=== PATIENT | female | born 1940 | race Caucasian/White ===

== ENCOUNTER 2020-12-29 11:44 | Day surgery (SDC) | payer MEDICARE, SELFPAY ==
[2020-12-29 12:21] VITALS: BP 150/73; PULSE 60; RESP 16; TEMP 37.1; O2SAT 95; BMI 22.8
[2020-12-29] MEDS: PROPARACAINE 0.5% OPHTH SOL 2 DROPS EYE-OP (12:36)
[2020-12-29] MEDS: CATARACT EYE COMPOUND (10 DROPS/SYRINGE) 3 DROPS EYE-OP (12:37)
--- NOTE | 2020-12-29 12:59 | P.OP_ITS ---
Operative Date/Time/Diagnoses Pre-op diagnosis: Nuclear cataract right eye Procedure & Clinicians Procedure: Cataract Surgery Same procedure as scheduled: Yes Surgeon: Cyrus Gonzalez Anesthesia Type: MAC +/- and Sedation Operative Notes Procedure in detail: Patient brought to the operating suite. Tetracaine drops placed in the right eye. Marking instrument was used to camelia the vertical and horizontal meridians. Patient was prepped and draped in sterile manner. Wire lid speculum was placed in the eye. Marking instrument was used to camelia the 30 degree meridian. Betadine drops were placed on the eye. This was irrigated. Lidocaine jelly was placed on the eye. A paracentesis port was created with a side-port blade. 0.1 mL 1% preservative free lidocaine was injected into the anterior chamber. The anterior chamber was deepened with viscoelastic. 2.6 mm keratome was used to create a temporal clear corneal incision. Cystotome and Utr holly forceps were used to create continuous tear capsulorrhexis. Balanced salt solution was used to hydro dissect the nucleus. The phacoemulsification handpiece was inserted and the nucleus was removed using the stop and chop technique. The irrigation aspiration handpiece was inserted and the remaining cortex was removed. Anterior chamber was deepened with viscoelastic. An Owens [id number] intraocular lens with a power of 24.5 was injected into the capsular bag. Irrigation aspiration handpiece was inserted and the remaining viscoelastic was removed. The lens was rotated to the 30 degree meridian. Incision was hydrated with balanced salt solution and found to be leak free with pressure with Weck- Aurea sponges. 0.1 mL Vigamox injected anterior chamber. 0.3 mL Kenalog 10 mg was injected subconjunctivally. Lid speculum was removed. The patient left the operating room in excellent condition. Complications: none Post-operative Condition: stable Disposition: same day surgery
--- NOTE | 2020-12-29 12:59 | PM.PREOP ---
Pre-operative Note Interval Note History & Physical reviewed/Exam performed by Physician: Yes Changes to H&P: No
[2020-12-29 13:50] LABS: COVID19 -Nasal RAPID Negative (Negative)
[2020-12-29] MEDS: MOXIFLOXACIN INJ 4 MG/0.8 ML VIAL 0.5 MG EYE-OP (13:55)
[2020-12-29] MEDS: LIDOCAINE 2% (GLYDO) 6 ML GEL TOP (13:55)
[2020-12-29] MEDS: PHENYLEPHRINE/LIDOCAINE VIAL (OR) 0.2 ML EYE-OP (13:55)
[2020-12-29] MEDS: TETRACAINE 0.5% OPHTH DROPS 4 ML 2 DROPS EYE-OP (13:55)
[2020-12-29] MEDS: HYALURONATE SODIUM 30 MG-10 MG/ML SYRINGES 1 BOX INTRAOCULA (13:55)
[2020-12-29] MEDS: TRIAMCINOLONE 50 MG/5 ML VIAL INJ (13:56)
[2020-12-29] MEDS: BALANCED SALT IRRIG SOLN NO.2 500 ML, EPINEPHrine 1 MG IRR (13:56)
[2020-12-29 14:14] VITALS: BP 140/59; PULSE 51; RESP 18; TEMP 36.7; O2SAT 96
[2020-12-29 14:46] VITALS: BP 148/59; PULSE 50; RESP 16; TEMP 36.8; O2SAT 98
== END 2020-12-29 15:24 | disposition home or self-care (01) ==
PROVIDERS: Family Provider Family Medicine Geriatric Medicine; PCP Family Medicine; Referring Provider Ophthalmology; Visit Provider Ophthalmology
PROC: (CPT 66984; principal; 2020-12-29 13:45)
DX: H25.11 Age-related nuclear cataract, right eye (principal); Z20.822 Contact with and (suspected) exposure to COVID-19; F41.9 Anxiety disorder, unspecified; F32.9 Major depressive disorder, single episode, unspecified; E78.00 Pure hypercholesterolemia, unspecified; I10 Essential (primary) hypertension; J84.9 Interstitial pulmonary disease, unspecified
CPT/HCPCS: 66984; 87635; J0171; J2250; J3301; V2787

== ENCOUNTER 2021-01-12 10:52 | Day surgery (SDC) | payer MEDICARE, SELFPAY ==
[2021-01-12 12:01] VITALS: BP 186/74; PULSE 58; RESP 16; TEMP 36.4; O2SAT 98; BMI 22.1
[2021-01-12] MEDS: PROPARACAINE 0.5% OPHTH SOL 2 DROPS EYE-OP (12:04)
[2021-01-12] MEDS: CATARACT EYE COMPOUND (10 DROPS/SYRINGE) 3 DROPS EYE-OP ×3 (12:08→12:22)
--- NOTE | 2021-01-12 12:38 | P.OP_ITS ---
Operative Date/Time/Diagnoses Pre-op diagnosis: Nuclear Cataract Left eye Post-op diagnosis: same Procedure & Clinicians Same procedure as scheduled: Yes Surgeon: Cyrus Gonzalez Anesthesia Type: MAC +/- and Sedation Operative Notes Procedure in detail: Patient brought to the operating suite. Tetracaine drops placed in the left eye. Marking instrument was used to camelia the vertical and horizontal meridians. Patient was prepped and draped in sterile manner. Wire lid speculum was placed in the eye. Marking instrument was used to camelia the 160 degree meridian. Betadine drops were placed on the eye. This was irrigated. Lidocaine jelly was placed on the eye. A paracentesis port was created with a side-port blade. 0.1 mL 1% preservative free lidocaine was injected into the anterior chamber. The anterior chamber was deepened with viscoelastic. 2.6 mm keratome was used to create a temporal clear corneal incision. Cystotome and Utrata forceps were used to create continuous tear capsulorrhexis. Balanced salt solution was used to hydro dissect the nucleus. The phacoemulsification handpiece was inserted and the nucleus was removed using the stop and chop technique. The irrigation aspiration handpiece was inserted and the remaining cortex was removed. Anterior chamber was deepened with viscoelastic. An Owens [id number] intraocular lens with a power of 24.5 was injected into the capsular bag. Irrigation aspiration handpiece was inserted and the remaining viscoelastic was removed. The lens was rotated to the 160 degree meridian. Incision was hydrated with balanced salt solution and found to be leak free with pressure with Weck- Aurea sponges. 0.1 mL Vigamox injected anterior chamber. 0.3 mL Kenalog 10 mg was injected subconjunctivally. Lid speculum was removed. The patient left the operating room in excellent condition. Complications: none Post-operative Condition: stable Disposition: same day surgery
--- NOTE | 2021-01-12 12:38 | PM.PREOP ---
Pre-operative Note Interval Note History & Physical reviewed/Exam performed by Physician: Yes Changes to H&P: No
[2021-01-12] MEDS: LIDOCAINE 2% (GLYDO) 6 ML GEL TOP (12:55)
[2021-01-12] MEDS: PHENYLEPHRINE/LIDOCAINE VIAL (OR) 0.2 ML EYE-OP (12:55)
[2021-01-12] MEDS: MOXIFLOXACIN INJ 4 MG/0.8 ML VIAL 0.5 MG EYE-OP (12:55)
[2021-01-12] MEDS: HYALURONATE SODIUM 30 MG-10 MG/ML SYRINGES 1 BOX INTRAOCULA (12:55)
[2021-01-12] MEDS: BALANCED SALT IRRIG SOLN NO.2 500 ML, EPINEPHrine 1 MG IRR (12:56)
[2021-01-12] MEDS: TRIAMCINOLONE 50 MG/5 ML VIAL INJ (12:56)
[2021-01-12] MEDS: TETRACAINE 0.5% OPHTH DROPS 4 ML 2 DROPS EYE-OP (12:56)
[2021-01-12 13:19] VITALS: BP 134/61; PULSE 46; RESP 12; TEMP 36.2; O2SAT 98
== END 2021-01-12 13:38 | disposition home or self-care (01) ==
PROVIDERS: Family Provider Family Medicine Geriatric Medicine; PCP Family Medicine; Referring Provider Ophthalmology; Visit Provider Ophthalmology
PROC: (CPT 66984; principal; 2021-01-12 12:45)
DX: H25.12 Age-related nuclear cataract, left eye (principal); F41.9 Anxiety disorder, unspecified; F32.9 Major depressive disorder, single episode, unspecified; E78.00 Pure hypercholesterolemia, unspecified; I10 Essential (primary) hypertension; J84.9 Interstitial pulmonary disease, unspecified
CPT/HCPCS: 66984; J0171; J2250; J3301; V2787